=== PATIENT | female | born 1990 | race Caucasian/White ===

== ENCOUNTER 2023-09-27 17:37 | Inpatient (IN) ==
[2023-09-27] MEDS: ONDANSETRON INJ 2 MG/ML 2 ML VIAL IV STA ×2 (18:19→19:09)
[2023-09-27] MEDS: SODIUM CHLORIDE 0.9% 1,000 ML IV STA (18:19)
[2023-09-27 18:35] LABS: Hematocrit (blood only) 37.8 % (37.0-47.0); Hemoglobin 13.5 g/dl (12.0-16.0); Mean Corpuscular Hemoglobin 28.1 pg (25.0-34.0); Mean Corpuscular Hgb Conc 35.7 g/dL (32.0-36.0); Mean Corpuscular Volume 78.6 fL (80.0-100.0); Mean Platelet Volume 10.8 fL (9.4-12.4); Platelet Count 200 K/uL (130-400); RDW Coefficient of Variation 12.6 % (11.5-14.5); RDW Standard Deviation 36.3 fL (36.4-46.3); Red Blood Count 4.81 M/uL (4.20-5.40); White Blood Count 4.18 K/ul (4.8-10.8)
[2023-09-27 18:44] LABS: Pregnancy Test, Serum Negative (Negative)
[2023-09-27 18:48] LABS: Alanine Aminotransferase 14 U/L (7-52); Albumin Globulin Ratio 1.4 (0.9-2); Albumin Level 4.2 gm/dl (3.4-5.0); Alkaline Phosphatase 53 U/L (34-104); Anion Gap 11 (3-11); Aspartate Aminotransferase 22 U/L (13-39); BUN Creatinine Ratio 13.6 (10-20); Bilirubin,Total 0.4 mg/dl (0.2-1.0); Blood Urea Nitrogen 14 mg/dl (6-23); Calcium 8.7 mg/dl (8.6-10.3); Carbon Dioxide 24 mmol/L (21-32); Chloride 101 mmol/L (98-107); Est GFR (African American) 81.6 ml/min; Est GFR (Non-African American) 70.4 ml/min; Globulin 2.9 gm/dl (2.5-4.0); Glucose 96 mg/dl (70-99(Fasting)); Lipase 19 U/L (11-82); Potassium 3.4 mmol/L (3.5-5.1); Sodium 136 mmol/L (136-145); Total Protein 7.1 gm/dl (6.0-8.3)
[2023-09-27 18:56] LABS: Basophils # (auto) 0.01 K/uL (0.00-0.20); Basophils % (auto) 0.2 %; Eosinophils # (auto) 0.24 K/uL (0.00-0.50); Eosinophils % (auto) 5.7 %; Immature Granulocytes # (auto) 0.01 K/uL (0.01-0.20); Immature Granulocytes % (auto) 0.2 %; Lymphocytes # (auto) 0.52 K/uL (1.20-3.40); Lymphocytes % (auto) 12.4 %; Monocytes # (auto) 0.31 K/uL (0.11-0.59); Monocytes % (auto) 7.4 %; Neutrophils # (auto) 3.09 K/uL (1.40-6.50); Neutrophils % (auto) 74.1 %
--- NOTE | 2023-09-27 19:06 | Emergency Department Note ---
Impression & Plan Vomiting, Fever, Acute dehydration, Lower abdominal pain ED Provider Note NAME: ROSENDO KAY AGE: 33 SEX: F : 1990 ARRIVES VIA: Walk-In INFORMANT: [Patient][] ED PROVIDER(S): [Tato Lorenzana MD] CHIEF COMPLAINT: Vomiting HISTORY OF PRESENT ILLNESS: The patient is a 33-year-old female presents with vomiting and chills and fever for 3 days. She has some lower abdominal pain that she thinks is from the vomiting itself. She has had a decreased urinary output, no urinary burning. No diarrhea. Patient states that her daughter had a fever recently and she thinks she may have caught an illness from her. No bad food eaten. Patient has noticed some headache. She also has noticed some white vaginal discharge. No foul odor to the discharge, no burning or itching or vaginal pain. PMHx/PSHx/Social Hx: See Below PHYSICAL EXAM: GENERAL: Patient is in no acute distress. HEENT: No acute trauma, normocephalic atraumatic, mucous membranes moist, no nasal congestion. NECK: No stridor, no adenopathy, no meningismus, trachea is midline. LUNGS: Clear to auscultation bilaterally, no wheeze, no rhonchi, breath sounds equal. HEART: Mildly tachycardic, regular rhythm, no murmurs. ABDOMEN: Soft, very mildly tender in the lower abdomen/pelvis bilaterally, no distention or peritonitis. EXTREMITIES: No cyanosis, full range of motion of all the joints without pain or difficulty. NEUROLOGIC: Oriented x 3, no acute motor or sensory deficits, no focal weakness. SKIN: No jaundice, no diaphoresis. DIFFERENTIAL DIAGNOSIS: Viral illness, foodborne illness, dehydration, UTI, diverticulitis or colitis, biliary colic, electrolyte imbalance, among others EMERGENCY DEPARTMENT PROCEDURES: MEDICAL DECISION MAKING: There is no leukocytosis, in fact, the white count is somewhat low suggesting a potential viral process. There was a normal hemoglobin and platelet count. Potassium slightly low at 3.4, likely from her lack of oral intake. There was no renal failure. No concerning liver enzyme elevation. No evidence for pancreatitis. testing was negative. Urinalysis shows ketones consistent with dehydration. There was no infection. Abdominal and pelvis CT did not show any evidence for appendicitis or acute surgical process. On exam, patient did seem dehydrated. She had a very low-grade fever. The patient received 3 L of IV saline. She was given IV Zofran, a second dose of IV Zofran was given. She was given IV Toradol for pain, IV Tylenol for pain and fever. She eventually received a dose of IV Phenergan. Patient has been here for multiple hours and persists with nausea and vomiting despite different medications for nausea. Her illness is likely viral but, she is dehydrated and I do think we will need a hospital stay for further symptom control. I did speak with the patient. I spoke with case management as well as the on- call hospitalist. Prior/Outside records/notes reviewed: None Imaging/x-ray results per my interpretation: Chronic Medical/Social conditions affecting care: Care/Management discussed with: Case management, the on-call hospitalist. Level of care consideration(s): After review of the information above and other included data: --I believe the patient requires escalation of care to admission DISPOSITION: Admission Past Med/Surg History Medical History No pertinent family history Preeclampsia Surgical History No pertinent past surgical history Social History Smoking Status: Never smoker Preferred Language: Scottish Feels Safe at Home: Yes Allergies Allergies Allergy/AdvReac Type Severity Reaction Status Date / Time bee venom protein (honey bee) Allergy Intermediate SWELLIING Verified 12/05/21 11:51 Home Meds Home Medications Medication Instructions Recorded Confirmed multivitamin 1 tab PO QAM 12/05/21 12/05/21 Results & Data (ED) Vital Signs Vital Signs - 24 hr 09/27/23 17:40 09/27/23 18:27 09/27/23 18:28 Temperature 37.8 C H Temperature Source Temporal Artery Scan Pulse Rate 132 H 99 H Pulse Rate [Right] 89 Pulse Rhythm Regular Pulse Strength Normal Respiratory Rate 18 12 Respiratory Effort / Characteristics Non-Labored Spontaneous Non-Labored Respiratory Depth Normal Normal Respiratory Pattern Regular Blood Pressure 100/70 Blood Pressure [Right Arm] 97/72 L Blood Pressure Mean 80 Blood Pressure Mean [Right Arm] 80 Blood Pressure Position Sitting Pulse Oximetry 98 95 Oxygen Delivery Method Room Air Room Air Sepsis Recent Fever Within 48 Hours No Sepsis New/Unexplained Change in Mental Status No Sepsis Action Taken by Nursing No Action Required 09/27/23 18:57 09/27/23 19:00 09/27/23 19:40 Temperature Temperature Source Pulse Rate 93 H 101 H Pulse Rate [Right] 90 Pulse Rhythm Pulse Strength Respiratory Rate 18 18 24 Respiratory Effort / Characteristics Non-Labored Respiratory Depth Normal Respiratory Pattern Blood Pressure Blood Pressure [Right Arm] 107/70 Blood Pressure Mean Blood Pressure Mean [Right Arm] 82 Blood Pressure Position Pulse Oximetry 97 97 95 Oxygen Delivery Method Room Air Sepsis Recent Fever Within 48 Hours Sepsis New/Unexplained Change in Mental Status Sepsis Action Taken by Nursing 09/27/23 22:00 09/27/23 22:00 09/27/23 22:30 Temperature Temperature Source Pulse Rate 64 66 46 L Pulse Rate [Right] Pulse Rhythm Pulse Strength Respiratory Rate 21 21 Respiratory Effort / Characteristics Respiratory Depth Respiratory Pattern Blood Pressure Blood Pressure [Right Arm] Blood Pressure Mean Blood Pressure Mean [Right Arm] Blood Pressure Position Pulse Oximetry 95 92 Oxygen Delivery Method Sepsis Recent Fever Within 48 Hours Sepsis New/Unexplained Change in Mental Status Sepsis Action Taken by Correction Medications Current Medication List: was personally reviewed by me Laboratory Data Attestation: I reviewed the patient's lab results. 09/27/23 18:13 09/27/23 18:13 Lab Results 09/27/23 09/27/23 Range/Units 18:13 Unknown WBC 4.18 L (4.8-10.8) K/ul RBC 4.81 (4.20-5.40) M/uL Hgb 13.5 (12.0-16.0) g/dl Hct 37.8 (37.0-47.0) % MCV 78.6 L (80.0-100.0) fL MCH 28.1 (25.0-34.0) pg MCHC 35.7 (32.0-36.0) g/dL RDW Std Deviation 36.3 L (36.4-46.3) fL RDW Coeff of Patricia 12.6 (11.5-14.5) % Plt Count 200 (130-400) K/uL MPV 10.8 (9.4-12.4) fL Immature Gran % (Auto) 0.2 % Neut % (Auto) 74.1 % Lymph % (Auto) 12.4 % [place] % (Auto) 7.4 % Eos % (Auto) 5.7 % Baso % (Auto) 0.2 % Neut # (Auto) 3.09 (1.40-6.50) K/uL Lymph # (Auto) 0.52 L (1.20-3.40) K/uL [place] # (Auto) 0.31 (0.11-0.59) K/uL Eos # (Auto) 0.24 (0.00-0.50) K/uL Baso # (Auto) 0.01 (0.00-0.20) K/uL Immature Gran # (Auto) 0.01 (0.01-0.20) K/uL Sodium 136 (136-145) mmol/L Potassium 3.4 L (3.5-5.1) mmol/L Chloride 101 (98-107) mmol/L Carbon Dioxide 24 (21-32) mmol/L Anion Gap 11 (3-11) BUN 14 (6-23) mg/dl Creatinine 1.03 (0.6-1.2) mg/dl Est Cr Clr Drug Dosing Not Reportable Est GFR ( Amer) 81.6 ml/min Est GFR (Non-Af Amer) 70.4 ml/min BUN/Creatinine Ratio 13.6 (10-20) Glucose 96 (70-99(Fasting)) mg/dl Calcium 8.7 (8.6-10.3) mg/dl Total Bilirubin 0.4 (0.2-1.0) mg/dl AST 22 (13-39) U/L ALT 14 (7-52) U/L Alkaline Phosphatase 53 (34-104) U/L Total Protein 7.1 (6.0-8.3) gm/dl Albumin 4.2 (3.4-5.0) gm/dl Globulin 2.9 (2.5-4.0) gm/dl Albumin/Globulin Ratio 1.4 (0.9-2) Lipase 19 (11-82) U/L HCG, Qual Negative (Negative) Urine Color Dark Yellow Urine Appearance Clear (Clear) Urine pH 5.5 (4.5-7.5) Ur Specific [place] 1.030 (1.000-1.030) Urine Protein Trace H (Negative) Urine Glucose (UA) Negative (Negative) Urine Ketones 3+ H (Negative) Urine Blood 1+ H (Negative) Urine Nitrite Negative (Negative) Urine Bilirubin Negative (Negative) Urine Urobilinogen Negative (Negative) Ur Leukocyte Esterase Negative (Negative) Urine WBC (Auto) 1-5 (0-5) /hpf Urine RBC (Auto) 0-4 (0-4) /hpf U Hyaline Cast (Auto) 1-5 (0-5) /lpf U Epithel Cells (Auto) >30 H (0-5) /lpf Urine Bacteria (Auto) Negative (Negative) Urine Mucus Present A (None Prsent) Administered Medications Discontinued Medications Sodium Chloride (Nss) 1,000 mls @ 999 mls/hr IV .Q1H1M STA Stop: 09/27/23 18:43 Last Infusion: 09/27/23 19:35 Dose: Infused Documented By: Admin: 09/27/23 18:19 Dose: 999 mls/hr Documented By: NRB Sodium Chloride (Nss) 1,000 mls @ 999 mls/hr IV .Q1H1M ANGELES Stop: 09/27/23 21:00 Last Infusion: 09/27/23 21:51 Dose: Infused Documented By: Admin: 09/27/23 19:39 Dose: 999 mls/hr Documented By: Infusion: 09/27/23 19:39 Dose: Infused Documented By: Admin: 09/27/23 19:08 Dose: 999 mls/hr Documented By: ANTONIO Acetaminophen (Ofirmev) 1,000 mg in 100 mls @ 400 mls/hr IV NOW STA Stop: 09/27/23 19:12 Last Infusion: 09/27/23 19:35 Dose: Infused Documented By: MMKayli Admin: 09/27/23 19:08 Dose: 400 mls/hr Documented By: NRB Promethazine HCl (Phenergan) 12.5 mg in 50.5 mls @ 202 mls/hr IV NOW STA Stop: 09/27/23 20:37 Last Infusion: 09/27/23 20:51 Dose: Infused Documented By: Admin: 09/27/23 20:33 Dose: 202 mls/hr Documented By: JESI Ioversol (Optiray 320 100ml) 89 ml IV ONCE ONE Stop: 09/27/23 21:06 Last Admin: 09/27/23 21:07 Dose: 89 ml Documented By: TYRONE Ketorolac Tromethamine (Ketorolac Tromethamine 15 Mg/Ml Vial) 15 mg IV NOW STA Stop: 09/27/23 18:59 Last Admin: 09/27/23 19:08 Dose: 15 mg Documented By: Admin: 09/27/23 19:08 Dose: 15 mg Documented By: ANTONIO Ondansetron HCl (Ondansetron Inj 2 Mg/Ml 2 Ml Vial) 4 mg IV NOW STA Stop: 09/27/23 17:44 Last Admin: 09/27/23 18:19 Dose: 4 mg Documented By: ANTONIO Ondansetron HCl (Ondansetron Inj 2 Mg/Ml 2 Ml Vial) 4 mg IV NOW STA Stop: 09/27/23 18:59 Last Admin: 09/27/23 19:09 Dose: 4 mg Documented By: ANTONIO Imaging Data Radiologist's Impression: Abdomen/Pelvis CT 09/27/23 20:23 CT SCAN OF THE ABDOMEN AND PELVIS WITH IV CONTRAST CLINICAL HISTORY: Vomiting. Lower abdominal pain. COMPARISON STUDY: No priors. TECHNIQUE: Following the IV administration of 89 cc of Optiray 320, CT scan of the abdomen and pelvis is performed from the lung bases to the proximal femora. Images are reviewed in the axial, sagittal, and coronal planes. IV contrast was administered without complication. A dose lowering technique was utilized adhering to the principles of ALARA. CT DOSE: 653.08 mGy.cm FINDINGS: Lung bases: The heart is normal in size and without pericardial effusion. There are trace pleural effusions with dependent atelectasis. Liver: The contrast-enhanced liver is normal in size, contour, and attenuation. There is no intrahepatic biliary ductal dilatation. The hepatic veins and portal veins are patent. Gallbladder: Unremarkable. Spleen: Normal in size and attenuation. Pancreas: Unremarkable. Adrenal glands: Unremarkable. Kidneys: The contrast enhanced kidneys are normal in size and without hydronephrosis. The kidneys enhance symmetrically. Abdominal vasculature: The abdominal aorta is normal in course and caliber. Bowel: There is no bowel obstruction. The appendix is well-visualized and normal. Peritoneum: There is no intraperitoneal free air or abdominal ascites. There is a small fat-containing umbilical hernia. Lymphadenopathy: None. Pelvic viscera: The bladder, uterus, and adnexa are normal as visualized. There are bilateral ovarian follicles. An involuting follicle is suggested on the left. A small volume of free fluid is seen in the cul-de-sac. Skeletal structures: No lytic or blastic lesions are seen. IMPRESSION: 1. No acute infectious or inflammatory findings are identified in the upper pelvis. 2. Trace pleural effusions. 3. Free fluid in the cul-de-sac is nonspecific and likely physiologic. ACT 112: Negative or not required by law. Electronically signed by: Tato Mott M.D. 09/27/2023 9:26 PM Discharge Plan Visit Data Chief Complaint: Vomiting Stated Complaint: VOMITING, HEADACHES, NAUSEA ED Provider: Tato Lorenzana Discharge Problem: Vomiting, Fever, Acute dehydration, Lower abdominal pain Patient Disposition: Admitted As Inpatient Condition: Fair Forms Stand Alone Forms: [facility] [employer] Prescriptions Prescriptions: No Action multivitamin Tablet 1 tab PO QAM Referrals Referrals: Eric Madrigal MD [Primary Care Provider] - Discharge Problem: Vomiting Qualifiers: Vomiting type: unspecified Nausea presence: with nausea Qualified Code(s): R 11.2 - Nausea with vomiting, unspecified Fever Qualifiers: Fever type: unspecified Qualified Code(s): R50.9 - Fever, unspecified
[2023-09-27] MEDS: SODIUM CHLORIDE 0.9% 1,000 ML IV SCH (19:08)
[2023-09-27] MEDS: ACETAMINOPHEN 1,000 MG/100 ML VIAL IV STA (19:08)
[2023-09-27] MEDS: KETOROLAC TROMETHAMINE 15 MG/ML VIAL IV STA (19:08)
[2023-09-27 20:01] LABS: Appearance Urine Clear (Clear); Bacteria Urine Automated Negative (Negative); Bilirubin Urine Negative (Negative); Blood Urine 1+ (Negative); Color Urine Dark Yellow; Epithelial Cell Urine Auto >30 /lpf (0-5); Glucose Urine UA Negative (Negative); Ketones Urine 3+ (Negative); Leukocyte Esterase Urine Negative (Negative); Nitrite Urine Negative (Negative); Protein Urine Trace (Negative); RBC Urine Automated 0-4 /hpf (0-4); Urobilinogen Urine Negative (Negative); pH Urine 5.5 (4.5-7.5)
[2023-09-27 20:12] LABS: Mucus Urine Present (None Prsent)
[2023-09-27] MEDS: PROMETHAZINE 12.5 MG/50.5 ML BAG IV STA (20:33)
[2023-09-27] MEDS: OPTIRAY 320 100ml IV ONE (21:07)
--- NOTE | 2023-09-27 21:28 | CT Scan Report ---
CT SCAN OF THE ABDOMEN AND PELVIS WITH IV CONTRAST CLINICAL HISTORY: Vomiting. Lower abdominal pain. COMPARISON STUDY: No priors. TECHNIQUE: Following the IV administration of 89 cc of Optiray 320, CT scan of the abdomen and pelvi s is performed from the lung bases to the proximal femora. Images are reviewed in the axial, sagittal , and coronal planes. IV contrast was administered without complication. A dose lowering technique wa s utilized adhering to the principles of ALARA. CT DOSE: 653.08 mGy.cm FINDINGS: Lung bases: The heart is normal in size and without pericardial effusion. There are trace pleural eff usions with dependent atelectasis. Liver: The contrast-enhanced liver is normal in size, contour, and attenuation. There is no intrahepa tic biliary ductal dilatation. The hepatic veins and portal veins are patent. Gallbladder: Unremarkable. Spleen: Normal in size and attenuation. Pancreas: Unremarkable. Adrenal glands: Unremarkable. Kidneys: The contrast enhanced kidneys are normal in size and without hydronephrosis. The kidneys enh ance symmetrically. Abdominal vasculature: The abdominal aorta is normal in course and caliber. Bowel: There is no bowel obstruction. The appendix is well-visualized and normal. Peritoneum: There is no intraperitoneal free air or abdominal ascites. There is a small fat-containin g umbilical hernia. Lymphadenopathy: None. Pelvic viscera: The bladder, uterus, and adnexa are normal as visualized. There are bilateral ovarian follicles. An involuting follicle is suggested on the left. A small volume of free fluid is seen in the cul-de-sac. Skeletal structures: No lytic or blastic lesions are seen. IMPRESSION: 1. No acute infectious or inflammatory findings are identified in the upper pelvis. 2. Trace pleural effusions. 3. Free fluid in the cul-de-sac is nonspecific and likely physiologic. ACT 112: Negative or not required by law. Electronically signed by: Tato Mott M.D. 09/27/2023 9:26 PM
--- NOTE | 2023-09-27 23:25 | History & Physical Report ---
Date of Service September 27, 2023 Assessment & Plan (1) Fever: Plan: Likely from viral illness Asymptomatic bradycardia Hypokalemia secondary illness bronchial asthma, not in acute exacerbation OBS Medical telemetry given bradycardia Replace potassium Supportive management for presumptive viral illness DVT prophylaxis. Lovenox subcu Full code Text document was generated using [employer] voice recognition software. It may contain grammatical or spelling errors. Kindly contact undersigned for clarification of any documentation item in question. History of Present Illness Chief Complaint: Abdominal pain, fever, chills Primary Care Provider: Carlos Lovett History obtained from patient, family, and records. Medical history significant for bronchial asthma. Few days history of achy lower abdominal pain associated with vomiting, chills, low-grade fever at home. No constipation or diarrhea symptoms. Denies dysuria. Dry cough symptoms without chest pain or SOB complaints. Chronic headache complaints as per patient. Intractable symptoms at the ER. Heart rate noted to be 40 to 50s at the ER. 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 Allergies Allergy/AdvReac Type Severity Reaction Status Date / Time bee venom protein (honey bee) Allergy Intermediate SWELLIING Verified 09/27/23 22:58 Home Medications Medication Instructions Recorded Confirmed Type acetaminophen 500 mg tablet 1,000 mg PO BID PRN Pain 09/27/23 09/27/23 History (Tylenol Extra Strength) ibuprofen 200 mg tablet 1,000 mg PO BID PRN Pain 09/27/23 09/27/23 History Past Med/Surg History Medical History No pertinent family history Preeclampsia Surgical History No pertinent past surgical history Social History Smoking Status: Never smoker Hx Alcohol Use: No Hx Substance Use: No Preferred Language: Nepalese Communication Ability: Effective Character Impersonator Required: No Beliefs That Will Affect Care: None Current Living Situation: Spouse Other Information That Helps Us Care for You: No Feels Safe at Home: Yes Safety Concerns: Feels Safe At This Time Review of Systems Review of Systems: As per HPI, all other systems reviewed and negative Physical Exam Physical Exam: GENERAL: uncomfortable, ill-appearing, no respiratory distress SKIN: Normal color, warm HEENT: [place] palpebral conjunctivae, no ptosis, dry buccal mucosa NECK : Supple, no tenderness CHEST : CTA, no tenderness HEART : Bradycardic, no obvious murmurs ABDOMEN: Some distention, minimal hypogastric tenderness EXTREMITIES : No LE swelling/tenderness, no other conspicuous deformities noted NEUROLOGIC : Coherent, no facial asymmetry, no other gross focality Results & Data Results & Data Vital Signs (Past 12 Hours) Vital Signs Temp Pulse Pulse Resp BP BP Pulse Ox 09/27/23 22:30 46 L 21 92 09/27/23 22:00 66 21 95 09/27/23 22:00 64 09/27/23 19:40 101 H 24 95 09/27/23 19:00 93 H 18 97 09/27/23 18:57 90 18 107/70 97 09/27/23 18:28 99 H 09/27/23 18:27 89 12 97/72 L 95 09/27/23 17:40 37.8 C H 132 H 18 100/70 98 O2 Del Method 09/27/23 22:30 09/27/23 22:00 09/27/23 22:00 09/27/23 19:40 09/27/23 19:00 09/27/23 18:57 Room Air 09/27/23 18:28 09/27/23 18:27 Room Air 09/27/23 17:40 Room Air Laboratory Results Laboratory Results WBC 4.18 K/ul (4.8-10.8) L 09/27/23 18:13 RBC 4.81 M/uL (4.20-5.40) 09/27/23 18:13 Hgb 13.5 g/dl (12.0-16.0) 09/27/23 18:13 Hct 37.8 % (37.0-47.0) 09/27/23 18:13 MCV 78.6 fL (80.0-100.0) L 09/27/23 18:13 MCH 28.1 pg (25.0-34.0) 09/27/23 18:13 MCHC 35.7 g/dL (32.0-36.0) 09/27/23 18:13 RDW Std Deviation 36.3 fL (36.4-46.3) L 09/27/23 18:13 RDW Coeff of Patricia 12.6 % (11.5-14.5) 09/27/23 18:13 Plt Count 200 K/uL (130-400) 09/27/23 18:13 MPV 10.8 fL (9.4-12.4) 09/27/23 18:13 Immature Gran % (Auto) 0.2 % 09/27/23 18:13 Neut % (Auto) 74.1 % 09/27/23 18:13 Lymph % (Auto) 12.4 % 09/27/23 18:13 [place] % (Auto) 7.4 % 09/27/23 18:13 Eos % (Auto) 5.7 % 09/27/23 18:13 Baso % (Auto) 0.2 % 09/27/23 18:13 Neut # (Auto) 3.09 K/uL (1.40-6.50) 09/27/23 18:13 Lymph # (Auto) 0.52 K/uL (1.20-3.40) L 09/27/23 18:13 [place] # (Auto) 0.31 K/uL (0.11-0.59) 09/27/23 18:13 Eos # (Auto) 0.24 K/uL (0.00-0.50) 09/27/23 18:13 Baso # (Auto) 0.01 K/uL (0.00-0.20) 09/27/23 18:13 Immature Gran # (Auto) 0.01 K/uL (0.01-0.20) 09/27/23 18:13 Sodium 136 mmol/L (136-145) 09/27/23 18:13 Potassium 3.4 mmol/L (3.5-5.1) L 09/27/23 18:13 Chloride 101 mmol/L (98-107) 09/27/23 18:13 Carbon Dioxide 24 mmol/L (21-32) 09/27/23 18:13 Anion Gap 11 (3-11) 09/27/23 18:13 BUN 14 mg/dl (6-23) 09/27/23 18:13 Creatinine 1.03 mg/dl (0.6-1.2) 09/27/23 18:13 Est Cr Clr Drug Dosing Not Reportable 09/27/23 18:13 Est GFR ( Amer) 81.6 ml/min 09/27/23 18:13 Est GFR (Non-Af Amer) 70.4 ml/min 09/27/23 18:13 BUN/Creatinine Ratio 13.6 (10-20) 09/27/23 18:13 Glucose 96 mg/dl (70-99(Fasting)) 09/27/23 18:13 Calcium 8.7 mg/dl (8.6-10.3) 09/27/23 18:13 Total Bilirubin 0.4 mg/dl (0.2-1.0) 09/27/23 18:13 AST 22 U/L (13-39) 09/27/23 18:13 ALT 14 U/L (7-52) 09/27/23 18:13 Alkaline Phosphatase 53 U/L (34-104) 09/27/23 18:13 Total Protein 7.1 gm/dl (6.0-8.3) 09/27/23 18:13 Albumin 4.2 gm/dl (3.4-5.0) 09/27/23 18:13 Globulin 2.9 gm/dl (2.5-4.0) 09/27/23 18:13 Albumin/Globulin Ratio 1.4 (0.9-2) 09/27/23 18:13 Lipase 19 U/L (11-82) 09/27/23 18:13 HCG, Qual Negative (Negative) 09/27/23 18:13 Urine Color Dark Yellow 09/27/23 Unknown Urine Appearance Clear (Clear) 09/27/23 Unknown Urine pH 5.5 (4.5-7.5) 09/27/23 Unknown Ur Specific [place] 1.030 (1.000-1.030) 09/27/23 Unknown Urine Protein Trace (Negative) H 09/27/23 Unknown Urine Glucose (UA) Negative (Negative) 09/27/23 Unknown Urine Ketones 3+ (Negative) H 09/27/23 Unknown Urine Blood 1+ (Negative) H 09/27/23 Unknown Urine Nitrite Negative (Negative) 09/27/23 Unknown Urine Bilirubin Negative (Negative) 09/27/23 Unknown Urine Urobilinogen Negative (Negative) 09/27/23 Unknown Ur Leukocyte Esterase Negative (Negative) 03/22/24 Unknown Urine WBC (Auto) 1-5 /hpf (0-5) 09/27/23 Unknown Urine RBC (Auto) 0-4 /hpf (0-4) 09/27/23 Unknown U Hyaline Cast (Auto) 1-5 /lpf (0-5) 09/27/23 Unknown U Epithel Cells (Auto) >30 /lpf (0-5) H 09/27/23 Unknown Urine Bacteria (Auto) Negative (Negative) 09/27/23 Unknown Urine Mucus Present (None Prsent) A 09/27/23 Unknown Impressions Abdomen/Pelvis CT 09/27/23 20:23 CT SCAN OF THE ABDOMEN AND PELVIS WITH IV CONTRAST CLINICAL HISTORY: Vomiting. Lower abdominal pain. COMPARISON STUDY: No priors. TECHNIQUE: Following the IV administration of 89 cc of Optiray 320, CT scan of the abdomen and pelvis is performed from the lung bases to the proximal femora. Images are reviewed in the axial, sagittal, and coronal planes. IV contrast was administered without complication. A dose lowering technique was utilized adhering to the principles of ALARA. CT DOSE: 653.08 mGy.cm FINDINGS: Lung bases: The heart is normal in size and without pericardial effusion. There are trace pleural effusions with dependent atelectasis. Liver: The contrast-enhanced liver is normal in size, contour, and attenuation. There is no intrahepatic biliary ductal dilatation. The hepatic veins and portal veins are patent. Gallbladder: Unremarkable. Spleen: Normal in size and attenuation. Pancreas: Unremarkable. Adrenal glands: Unremarkable. Kidneys: The contrast enhanced kidneys are normal in size and without hydronephrosis. The kidneys enhance symmetrically. Abdominal vasculature: The abdominal aorta is normal in course and caliber. Bowel: There is no bowel obstruction. The appendix is well-visualized and normal. Peritoneum: There is no intraperitoneal free air or abdominal ascites. There is a small fat-containing umbilical hernia. Lymphadenopathy: None. Pelvic viscera: The bladder, uterus, and adnexa are normal as visualized. There are bilateral ovarian follicles. An involuting follicle is suggested on the l eft. A small volume of free fluid is seen in the cul-de-sac. Skeletal structures: No lytic or blastic lesions are seen. IMPRESSION: 1. No acute infectious or inflammatory findings are identified in the upper pelvis. 2. Trace pleural effusions. 3. Free fluid in the cul-de-sac is nonspecific and likely physiologic. ACT 112: Negative or not required by law. Electronically signed by: Tato Mott M.D. 09/27/2023 9:26 PM (1) Fever Fever type: unspecified Qualified Code(s): R50.9 - Fever, unspecified
[2023-09-27] MEDS ORDERED: LORazepam 0.5 MG TAB PO PRN (23:27)
[2023-09-27] MEDS ORDERED: KETOROLAC TROMETHAMINE 15 MG/ML VIAL IV PRN (23:27)
[2023-09-27 23:37] LABS: Thyroid Stimulating Hormone 0.297 uIu/ml (0.300-4.500)
[2023-09-28 00:16] LABS: T4 Free Thyroxine 0.76 ng/dl (0.61-1.60)
[2023-09-28] MEDS: NSS + 20MEQ KCL 20 MEQ/1,000 ML BAG IV ONE ×2 (00:25→06:21)
[2023-09-28 01:17] LABS: Influenza A virus by PCR Negative (Neg); Influenza B virus by PCR Negative (Neg); RSV by PCR Negative (Neg); SARS CoV2 RNA(COVID-19) Ceph NEGATIVE (Negative)
[2023-09-28 01:43] LABS: Procalcitonin 0.18 ng/ml (0-0.5)
[2023-09-28 02:09] LABS: Lyme Screen Rflx Confirmation Negative (Negative)
[2023-09-28 06:10] LABS: BUN Creatinine Ratio 17.9 (10-20); Calcium 6.7 mg/dl (8.6-10.3); Creatinine Clr Calc Pharmacy 103.2 ml/min; Est GFR (Non-African American) 113.9 ml/min; Potassium 3.5 mmol/L (3.5-5.1)
[2023-09-28 06:53] LABS: Hematocrit (blood only) 30.2 % (37.0-47.0); Hemoglobin 10.3 g/dl (12.0-16.0); Mean Corpuscular Hemoglobin 27.8 pg (25.0-34.0); Mean Corpuscular Hgb Conc 34.1 g/dL (32.0-36.0); Mean Corpuscular Volume 81.4 fL (80.0-100.0); Mean Platelet Volume 10.7 fL (9.4-12.4); Platelet Count 139 K/uL (130-400); RDW Coefficient of Variation 12.9 % (11.5-14.5); RDW Standard Deviation 38.4 fL (36.4-46.3); Red Blood Count 3.71 M/uL (4.20-5.40); White Blood Count 3.27 K/ul (4.8-10.8)
[2023-09-28 07:04] LABS: Eosinophils # (auto) 0.18 K/uL (0.00-0.50); Eosinophils % (auto) 5.5 %; Immature Granulocytes # (auto) 0.02 K/uL (0.01-0.20); Immature Granulocytes % (auto) 0.6 %; Lymphocytes # (auto) 0.88 K/uL (1.20-3.40); Lymphocytes % (auto) 26.9 %; Monocytes # (auto) 0.32 K/uL (0.11-0.59); Monocytes % (auto) 9.8 %; Neutrophils # (auto) 1.87 K/uL (1.40-6.50); Neutrophils % (auto) 57.2 %
[2023-09-28 08:57] LABS: BUN Creatinine Ratio 21.1 (10-20); Calcium 6.8 mg/dl (8.6-10.3); Creatinine Clr Calc Pharmacy 121.3 ml/min; Est GFR (African American) 139.2 ml/min; Est GFR (Non-African American) 120.1 ml/min; Potassium 3.5 mmol/L (3.5-5.1)
[2023-09-28] MEDS: ENOXAPARIN INJ 40 MG/0.4 ML SYR SQ SCH (09:24)
[2023-09-28] MEDS: PANTOprazole 40 MG in SYRINGE 0 ML IV ONE (09:24)
--- NOTE | 2023-09-28 09:24 | XRay Report ---
XR chest 1V portable CLINICAL HISTORY: dry cough COMPARISON STUDY: Chest radiograph December 08, 2015. FINDINGS: Lung volumes are normal. Mild bibasilar opacities favor atelectasis. There is no pneumothor ax or pleural effusion. Cardiac size is normal. Mediastinal contours are normal. There is no evidence for pulmonary edema. IMPRESSION: Mild bibasilar opacities suggestive of atelectasis. No acute findings. ACT 112: Negative or not required by law. Electronically signed by: Aamir Hilario M.D. 09/28/2023 9:22 AM
[2023-09-28] MEDS: CALCIUM CARBONATE 1,250 MG/5 ML UDC PO SCH (13:33)
--- NOTE | 2023-09-28 17:11 | Hospitalist Progress Note ---
Date of Service September 28, 2023 Assessment & Plan (1) Fever: Plan: Likely from viral gastroenteritis Clinically improving Blood pressure still in the 90s Has received at least 3 L of IV fluids at this time States she feels puffy Will hold off on IV fluids, but encouraged to increase water intake Will also advance the diet to soft Follow-up cultures Continue to monitor closely Asymptomatic bradycardia Heart rate improving Hypokalemia secondary illness Resolved Mild hypocalcemia Likely from poor oral intake Oral calcium ordered Check vitamin D bronchial asthma, not in acute exacerbation DVT prophylaxis. Lovenox subcu Full code Disposition Anticipate discharge to home medically plan of care discussed with patient and her parents at the bedside in detail and at length all questions answered They are understanding, agreeable, comfortable with the plan of care Admission and Anticipated Discharge Date Admission Date: September 27, 2023 Subjective Follow-up for likely viral gastroenteritis, etc. Seen resting in bed, sitting up, alert, in good spirits Patient's parents at the bedside visiting States she feels improved compared to yesterday But still feeling on the weak side, still having some lightheadedness while standing, and some frontal headache Denies shortness of breath, cough, chest pain Denies neck pain No abdominal pain now, no nausea or vomiting, tolerating clear liquid so far Denies urinary symptoms or diarrhea No fevers or chills today No other new symptoms Review of Systems Review of Systems: all noted and negative except for above Physical Exam Physical Exam: General- oriented x 3, not in distress, speaks in sentences with no effort or accessory muscle use Eyes- anicteric Neck- no JVD Lungs- clear breath sounds bilaterally, no rales/wheezes Heart- normal rate, regular rhythm; no murmurs Abdomen- normal bowel sounds, nondistended, soft, nontender Extremities- no pretibial edema, no calf tenderness Neuro- alert, oriented x 3; no gross focal neurologic deficits Skin- warm & dry Results & Data Results & Data Vital Signs (Past 12 Hours) Vital Signs Temp Pulse Pulse Resp BP Pulse Ox O2 Del Method 09/28/23 15:05 36.7 C 61 20 90/54 L 96 Room Air 09/28/23 14:30 70 09/28/23 11:16 36.6 C 67 18 98/64 L 97 Room Air 09/28/23 07:54 63 09/28/23 07:27 36.4 C L 66 18 91/58 L 96 Room Air 09/28/23 05:35 50 L 90/56 L all noted and reviewed including below (1) Fever Fever type: unspecified Qualified Code(s): R50.9 - Fever, unspecified
[2023-09-29] MEDS: ACETAMINOPHEN 325 MG TAB PO PRN (03:22)
[2023-09-29] MEDS: PROMETHAZINE HCL 12.5 MG in SODIUM CHLORIDE 0.9% 50 ML IV PRN (03:23)
[2023-09-29 08:17] LABS: Hematocrit (blood only) 32.4 % (37.0-47.0); Mean Corpuscular Hemoglobin 27.4 pg (25.0-34.0); Mean Corpuscular Volume 80.6 fL (80.0-100.0); Mean Platelet Volume 10.6 fL (9.4-12.4); Platelet Count 179 K/uL (130-400); RDW Coefficient of Variation 12.8 % (11.5-14.5); RDW Standard Deviation 37.4 fL (36.4-46.3); Red Blood Count 4.02 M/uL (4.20-5.40)
[2023-09-29 08:39] LABS: Basophils # (auto) 0.02 K/uL (0.00-0.20); Basophils % (auto) 0.3 %; Eosinophils # (auto) 0.34 K/uL (0.00-0.50); Eosinophils % (auto) 4.9 %; Immature Granulocytes # (auto) 0.04 K/uL (0.01-0.20); Immature Granulocytes % (auto) 0.6 %; Lymphocytes # (auto) 1.65 K/uL (1.20-3.40); Lymphocytes % (auto) 23.9 %; Monocytes # (auto) 0.56 K/uL (0.11-0.59); Monocytes % (auto) 8.1 %; Neutrophils # (auto) 4.29 K/uL (1.40-6.50); Neutrophils % (auto) 62.2 %; Toxic Vacuolation 1+
[2023-09-29 08:45] LABS: Calcium 7.7 mg/dl (8.6-10.3); Potassium 3.4 mmol/L (3.5-5.1)
[2023-09-29 08:51] LABS: BUN Creatinine Ratio 10.3 (10-20); Creatinine Clr Calc Pharmacy 119.9 ml/min; Est GFR (African American) 138.4 ml/min; Est GFR (Non-African American) 119.4 ml/min
[2023-09-29] MEDS: POTASSIUM CHLORIDE CRTAB 20 MEQ TABCR PO STA (10:23)
--- NOTE | 2023-09-29 15:33 | Hospitalist Progress Note ---
Date of Service September 29, 2023 Assessment & Plan (1) Fever: Plan: Likely from viral gastroenteritis Clinically improving Blood pressure still in the 90s Has received at least 3 L of IV fluids at this time States she feels puffy Will hold off on IV fluids, but encouraged to increase water intake Will also advance the diet to soft 09/28 Afebrile Blood pressure improved Denies dizziness, lightheadedness even with ambulation Urinalysis no UTI Blood culture negative No other focus of infection etc. viral gastroenteritis identified Clinically improved Discharge to home PCP follow-up in 1 Asymptomatic bradycardia Heart rate improved Hypokalemia secondary illness Resolved Mild hypocalcemia Likely from poor oral intake Oral calcium ordered --Calcium level back to normal --Instructed to take multivitamins daily Monitor as an outpatient bronchial asthma, not in acute exacerbation DVT prophylaxis. Lovenox subcu Full code Disposition DC home PCP follow-up in 1 week plan of care discussed with patient in detail and at length all questions answered she is understanding, agreeable, comfortable with the plan of care Admission and Anticipated Discharge Date Admission Date: September 28, 2023 Subjective Follow-up for weakness, vomiting, etc. Seen resting in bed, sitting up, not in distress, good spirits States she feels much better overall Abdominal pain, nausea and vomiting resolved Tolerating diet well Ambulating with no problems, no lightheadedness States she is back to her baseline States she is ready for discharge Review of Systems Review of Systems: all noted and negative except for above Physical Exam Physical Exam: General- oriented x 3, not in distress, speaks in sentences with no effort or accessory muscle use Eyes- anicteric Neck- no JVD Lungs- clear breath sounds bilaterally, no rales/wheezes Heart- normal rate, regular rhythm; no murmurs Abdomen- normal bowel sounds, nondistended, soft, nontender Extremities- no pretibial edema, no calf tenderness Neuro- alert, oriented x 3; no gross focal neurologic deficits Skin- warm & dry Results & Data Results & Data Vital Signs (Past 12 Hours) Vital Signs Temp Pulse Resp BP Pulse Ox O2 Del Method 09/29/23 11:41 36.7 C 78 18 105/68 97 09/29/23 10:34 36.7 C 78 18 105/68 97 Room Air 09/29/23 07:38 80 102/65 09/29/23 07:07 36.5 C 64 19 97 Room Air all noted and reviewed including below (1) Fever Fever type: unspecified Qualified Code(s): R50.9 - Fever, unspecified
--- NOTE | 2023-09-29 15:35 | Discharge Summary ---
Discharge Summary Date of Service September 29, 2023 Notes For Next Care Provider Medication Changes From Visit None Admission HPI Per Admitting Provider History obtained from patient, family, and records. Medical history significant for bronchial asthma. Few days history of achy lower abdominal pain associated with vomiting, chills, low-grade fever at home. No constipation or diarrhea symptoms. Denies dysuria. Dry cough symptoms without chest pain or SOB complaints. Chronic headache complaints as per patient. Intractable symptoms at the ER. Heart rate noted to be 40 to 50s at the ER. 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 Admission Exam Per Admitting Provider GENERAL: uncomfortable, ill-appearing, no respiratory distress SKIN: Normal color, warm HEENT: [place] palpebral conjunctivae, no ptosis, dry buccal mucosa NECK : Supple, no tenderness CHEST : CTA, no tenderness HEART : Bradycardic, no obvious murmurs ABDOMEN: Some distention, minimal hypogastric tenderness EXTREMITIES : No LE swelling/tenderness, no other conspicuous deformities noted NEUROLOGIC : Coherent, no facial asymmetry, no other gross focality Principal Dx & Hospital Course #1 = Principal Diagnosis (1) Fever: Likely from viral gastroenteritis Clinically improving Blood pressure still in the 90s Has received at least 3 L of IV fluids at this time States she feels puffy Will hold off on IV fluids, but encouraged to increase water intake Will also advance the diet to soft 3/24 Afebrile Blood pressure improved Denies dizziness, lightheadedness even with ambulation Urinalysis no UTI Blood culture negative No other focus of infection etc. viral gastroenteritis identified Clinically improved Discharge to home PCP follow-up in 1 Asymptomatic bradycardia Heart rate improved Hypokalemia secondary illness Resolved Mild hypocalcemia Likely from poor oral intake Oral calcium ordered --Calcium level back to normal --Instructed to take multivitamins daily Monitor as an outpatient bronchial asthma, not in acute exacerbation DVT prophylaxis. Lovenox subcu Full code Disposition DC home PCP follow-up in 1 week plan of care discussed with patient in detail and at length all questions answered she is understanding, agreeable, comfortable with the plan of care Discharge Exam General- oriented x 3, not in distress, speaks in sentences with no effort or accessory muscle use Eyes- anicteric Neck- no JVD Lungs- clear breath sounds bilaterally, no rales/wheezes Heart- normal rate, regular rhythm; no murmurs Abdomen- normal bowel sounds, nondistended, soft, nontender Extremities- no pretibial edema, no calf tenderness Neuro- alert, oriented x 3; no gross focal neurologic deficits Skin- warm & dry Updated Medication List Medication Instructions Recorded Confirmed Type acetaminophen 500 mg tablet 1,000 mg PO BID PRN Pain 09/27/23 09/27/23 History (Tylenol Extra Strength) ibuprofen 200 mg tablet 400 mg (2 x 200 mg) PO Q6H PRN 09/29/23 09/27/23 Rx Pain #10 tabs Hospital Stay Data Consultations 09/27/23 22:25 ED Decision to Admit Stat Diagnostic Imagining Performed Laboratory Results WBC 6.90 K/ul (4.8-10.8) 09/29/23 07:47 RBC 4.02 M/uL (4.20-5.40) L 09/29/23 07:47 Hgb 11.0 g/dl (12.0-16.0) L 09/29/23 07:47 Hct 32.4 % (37.0-47.0) L 09/29/23 07:47 MCV 80.6 fL (80.0-100.0) 09/29/23 07:47 MCH 27.4 pg (25.0-34.0) 09/29/23 07:47 MCHC 34.0 g/dL (32.0-36.0) 09/29/23 07:47 RDW Std Deviation 37.4 fL (36.4-46.3) 09/29/23 07:47 RDW Coeff of Patricia 12.8 % (11.5-14.5) 09/29/23 07:47 Plt Count 179 K/uL (130-400) 09/29/23 07:47 MPV 10.6 fL (9.4-12.4) 09/29/23 07:47 Immature Gran % (Auto) 0.6 % 09/29/23 07:47 Neut % (Auto) 62.2 % 09/29/23 07:47 Lymph % (Auto) 23.9 % 09/29/23 07:47 [place] % (Auto) 8.1 % 09/29/23 07:47 Eos % (Auto) 4.9 % 09/29/23 07:47 Baso % (Auto) 0.3 % 09/29/23 07:47 Neut # (Auto) 4.29 K/uL (1.40-6.50) 09/29/23 07:47 Lymph # (Auto) 1.65 K/uL (1.20-3.40) 09/29/23 07:47 [place] # (Auto) 0.56 K/uL (0.11-0.59) 09/29/23 07:47 Eos # (Auto) 0.34 K/uL (0.00-0.50) 09/29/23 07:47 Baso # (Auto) 0.02 K/uL (0.00-0.20) 09/29/23 07:47 Immature Gran # (Auto) 0.04 K/uL (0.01-0.20) 09/29/23 07:47 Toxic Vacuolation 1+ 09/29/23 07:47 Sodium 138 mmol/L (136-145) 09/29/23 07:47 Potassium 3.4 mmol/L (3.5-5.1) L 09/29/23 07:47 Chloride 107 mmol/L (98-107) 09/29/23 07:47 Carbon Dioxide 28 mmol/L (21-32) 09/29/23 07:47 Anion Gap 3 (3-11) 09/29/23 07:47 BUN 6 mg/dl (6-23) 09/29/23 07:47 Creatinine 0.58 mg/dl (0.6-1.2) L 09/29/23 07:47 Est Cr Clr Drug Dosing 119.9 ml/min 09/29/23 07:47 Est GFR ( Amer) 138.4 ml/min 09/29/23 07:47 Est GFR (Non-Af Amer) 119.4 ml/min 09/29/23 07:47 BUN/Creatinine Ratio 10.3 (10-20) 09/29/23 07:47 Glucose 82 mg/dl (70-99(Fasting)) 09/29/23 07:47 Lactate 0.8 mmol/L (0.4-2.0) 09/28/23 05:28 Calcium 7.7 mg/dl (8.6-10.3) L 09/29/23 07:47 Ionized Calcium 1.11 mmol/L (1.12-1.32) L 09/29/23 07:47 Total Bilirubin 0.4 mg/dl (0.2-1.0) 09/27/23 18:13 AST 22 U/L (13-39) 09/27/23 18:13 ALT 14 U/L (7-52) 09/27/23 18:13 Alkaline Phosphatase 53 U/L (34-104) 09/27/23 18:13 Total Protein 7.1 gm/dl (6.0-8.3) 09/27/23 18:13 Albumin 3.0 gm/dl (3.4-5.0) L 09/28/23 08:19 Globulin 2.9 gm/dl (2.5-4.0) 09/27/23 18:13 Albumin/Globulin Ratio 1.4 (0.9-2) 09/27/23 18:13 Lipase 19 U/L (11-82) 09/27/23 18:13 Procalcitonin 0.18 ng/ml (0-0.5) 09/27/23 18:13 TSH 0.297 uIu/ml (0.300-4.500) L 09/27/23 18:13 Free T4 0.76 ng/dl (0.61-1.60) 09/27/23 18:13 HCG, Qual Negative (Negative) 09/27/23 18:13 Urine Color Dark Yellow 09/27/23 Unknown Urine Appearance Clear (Clear) 09/27/23 Unknown Urine pH 5.5 (4.5-7.5) 09/27/23 Unknown Ur Specific [place] 1.030 (1.000-1.030) 09/27/23 Unknown Urine Protein Trace (Negative) H 09/27/23 Unknown Urine Glucose (UA) Negative (Negative) 09/27/23 Unknown Urine Ketones 3+ (Negative) H 09/27/23 Unknown Urine Blood 1+ (Negative) H 09/27/23 Unknown Urine Nitrite Negative (Negative) 09/27/23 Unknown Urine Bilirubin Negative (Negative) 09/27/23 Unknown Urine Urobilinogen Negative (Negative) 09/27/23 Unknown Ur Leukocyte Esterase Negative (Negative) 09/27/23 Unknown Urine WBC (Auto) 1-5 /hpf (0-5) 09/27/23 Unknown Urine RBC (Auto) 0-4 /hpf (0-4) 09/27/23 Unknown U Hyaline Cast (Auto) 1-5 /lpf (0-5) 09/27/23 Unknown U Epithel Cells (Auto) >30 /lpf (0-5) H 09/27/23 Unknown Urine Bacteria (Auto) Negative (Negative) 09/27/23 Unknown Urine Mucus Present (None Prsent) A 09/27/23 Unknown Lyme Disease Screen Negative (Negative) 09/27/23 18:13 SARS-CoV-2 (PCR) NEGATIVE (Negative) 09/28/23 Unknown Influenza Type A (PCR) Negative (Neg) 09/28/23 Unknown Influenza Type B (PCR) Negative (Neg) 09/28/23 Unknown RSV (RT-PCR) Negative (Neg) 09/28/23 Unknown Impressions Abdomen/Pelvis CT 09/27/23 20:23 CT SCAN OF THE ABDOMEN AND PELVIS WITH IV CONTRAST CLINICAL HISTORY: Vomiting. Lower abdominal pain. COMPARISON STUDY: No priors. TECHNIQUE: Following the IV administration of 89 cc of Optiray 320, CT scan of the abdomen and pelvis is performed from the lung bases to the proximal femora. Images are reviewed in the axial, sagittal, and coronal planes. IV contrast was administered without complication. A dose lowering technique was utilized adhering to the principles of ALARA. CT DOSE: 653.08 mGy.cm FINDINGS: Lung bases: The heart is normal in size and without pericardial effusion. There are trace pleural effusions with dependent atelectasis. Liver: The contrast-enhanced liver is normal in size, contour, and attenuation. There is no intrahepatic biliary ductal dilatation. The hepatic veins and portal veins are patent. Gallbladder: Unremarkable. Spleen: Normal in size and attenuation. Pancreas: Unremarkable. Adrenal glands: Unremarkable. Kidneys: The contrast enhanced kidneys are normal in size and without hydronephrosis. The kidneys enhance symmetrically. Abdominal vasculature: The abdominal aorta is normal in course and caliber. Bowel: There is no bowel obstruction. The appendix is well-visualized and normal. Peritoneum: There is no intraperitoneal free air or abdominal ascites. There is a small fat-containing umbilical hernia. Lymphadenopathy: None. Pelvic viscera: The bladder, uterus, and adnexa are normal as visualized. There are bilateral ovarian follicles. An involuting follicle is suggested on the left. A small volume of free fluid is seen in the cul-de-sac. Skeletal structures: No lytic or blastic lesions are seen. IMPRESSION: 1. No acute infectious or inflammatory findings are identified in the upper pelvis. 2. Trace pleural effusions. 3. Free fluid in the cul-de-sac is nonspecific and likely physiologic. ACT 112: Negative or not required by law. Electronically signed by: Tato Mott M.D. 09/27/2023 9:26 PM Chest X-Ray 09/28/23 08:30 XR chest 1V portable CLINICAL HISTORY: dry cough COMPARISON STUDY: Chest radiograph December 08, 2015. FINDINGS: Lung volumes are normal. Mild bibasilar opacities favor atelectasis. There is no pneumothorax or pleural effusion. Cardiac size is normal. Mediastinal contours are normal. There is no evidence for pulmonary edema. IMPRESSION: Mild bibasilar opacities suggestive of atelectasis. No acute findings. ACT 112: Negative or not required by law. Electronically signed by: Aamir Hilario M.D. 09/28/2023 9:22 AM 09/27/23 20:23 CT abd pelvis IV con only Stat Pending Results Patient Have Any Pending Studies at Discharge: No Discharge Instructions Given to Patient (Per Discharging Provider) Please drink plenty of fluids daily. Take a multivitamin daily as well. PLEASE CALL YOUR PRIMARY CARE PHYSICIAN OR RETURN TO THE ER IF WITH WORSENING OF SYMPTOMS, INCLUDING Abdominal pain, vomiting, poor oral intake, weakness, fevers or chills, etc. FOLLOW UP WITH PRIMARY CARE PHYSICIAN IN 1 WEEK. Total Time Total Time Spent Total Time Spent (In Minutes): >30 minutes
== END 2023-09-29 12:30 | disposition home or self-care (01) | DRG 392 ==
LOC: ED 17:37 → 2S 17:37